=== PATIENT | female | born 1990 | race Caucasian/White ===

== ENCOUNTER 2016-12-29 19:27 | Emergency (ER) | payer SELFPAY ==
[2016-12-29 20:02] VITALS: BP 142/91
--- NOTE | 2016-12-29 20:18 | ED Physician Documentation ---
PD HPI FEMALE - Stated complaint Stated Complaint: FEMALE - Chief complaint Chief Complaint: General - History obtained from History obtained from: Patient - History of Present Illness Timing - onset: How many months ago (5) Timing - duration: Months (5 months of intermittent cramps and bleeding since IUD placed. Was told it will improve after a month or so. Continues to bother her regularly. Would like to have IUD removed. Recently moved so does not have PCP/[employer] here.) Timing - details: Gradual onset, Still present, Waxing and waning Associated symptoms: Pelvic pain, Vaginal bleeding. No: Vaginal discharge, Genital sore/lesion Contributing factors: IUD Similar symptoms before: Has not had sx before Recently seen: Clinic (IUD placed 5 months ago, with symptoms on and off since.) Review of Systems Constitutional: denies: Fever, Chills GI: reports: Abdominal Pain : reports: Vaginal bleeding. denies: Dysuria, Frequency, Discharge Skin: denies: Rash, Lesions Musculoskeletal: denies: Back pain PD PAST MEDICAL HISTORY - Present Medications Home Medications: Ambulatory Orders Medication Instructions Recorded Confirmed No Known Home Medications [No 12/29/16 12/29/16 Known Home Medications] - Allergies Allergies/Adverse Reactions: Allergies Allergy/AdvReac Type Severity Reaction Status Date / Time latex Allergy Rash Verified 12/29/16 20:02 PD ED PE NORMAL - Vitals Vital signs reviewed: Yes - General General: Alert and oriented X 3, Well developed/nourished - Abdomen Abdomen: Soft, Non tender - Female Female : Brokerage Clerk present, Other (IUD string seen and pulled with [place] with removal of the IUD without problems. No discharge nor disgns of infection. ) - Back Back: No CVA TTP Results - Vitals Vitals: Oxygen O2 Source Room air Procedures - General procedure General procedure: IUD removal with gentle traction on the string. No signs of infection. Just spots of bleeding after. PD MEDICAL DECISION MAKING - ED course Complexity details: considered differential, d/w patient Departure - Departure Disposition: 01 Home, Self Care Clinical Impression: Pelvic cramping Pain due to intrauterine contraceptive device (IUD) Qualifiers: Encounter type: initial encounter Qualified Code(s): T83.84XA - Pain due to genitourinary prosthetic devices, implants and grafts, initial encounter Condition: Stable Record reviewed to determine appropriate education?: Yes Follow-Up: Ailin Disla, DO [Provider Admit Priv/Credential] - Comments: Use some ibuprofen or naproxen 2-3 times daily for the next week. The irritation of the uterus and therefore cramping should decrease over the next several days to a week. Add Tylenol or hydrocodone if needed for pain. Follow- up with gynecology if not improved in the next week or so. Discharge Date/Time: 12/29/16 21:41
[2016-12-29] MEDS ORDERED: HYDROcod/ACETAM 5/325 MG TABLET PO STA (20:49)
[2016-12-29] MEDS ORDERED: HYDROcod/ACETAM 5/325 MG TABLET ONE (21:03)
[2016-12-29] MEDS ORDERED: HYDROcod/ACET 5/325 Prepack 6 PO ONE ×2 (21:19→21:29)
== END 2016-12-29 21:41 | disposition home or self-care (01) ==
LOC: ED 19:27
DX: T83.84XA Pain due to genitourinary prosthetic devices, implants and grafts, initial encounter (principal)
CPT/HCPCS: 99283; A9270